=== PATIENT | male | born 1955 | race Caucasian/White ===

== ENCOUNTER 2016-12-04 19:05 | Emergency (ER) | payer BC ==
[2016-12-04] MEDS ORDERED: Cyclobenzaprine 10 MG Tab PO ONE (19:06)
[2016-12-04] MEDS ORDERED: Acetaminophen/HYDROcodone 325-5 MG Tab PO ONE (19:06)
[2016-12-04 19:16] VITALS: BP 148/66
[2016-12-04 19:31] LABS: CHLORIDE,CL 105 mEq/L (98-106); SODIUM,NA 141 mEq/L (136-145)
[2016-12-04] MEDS ORDERED: Tamsulosin 0.4 MG Cap.ER PO ONE (19:45)
[2016-12-04] MEDS ORDERED: Ketorolac 30 MG/ML SDV IVPUSH ONE (19:45)
[2016-12-04] MEDS ORDERED: Sodium Chloride 0.9% 1,000 ML IV ONE (19:45)
--- NOTE | 2016-12-04 19:58 | EDM.PDOC ---
ED HPI GENERAL MEDICAL PROBLEM - General Chief Complaint: Genitourinary Problem Stated Complaint: RIGHT FLANK PAIN Time Seen by Provider: 12/04/16 19:20 Source of Information: Reports: Patient History Limitations: Reports: No Limitations - History of Present Illness INITIAL COMMENTS - FREE TEXT/NARRATIVE: This patient is a 61 year old male that presents to the ER. Patient reports that for about the last 2 weeks that he has had right flank pain that comes and goes. he reports today the pain was worse than what it has. The patient reports today he noticed there was a dark color urine that he thought could be blood in his urine. The patient does report the pain in his lower right back is worse with movement. Patient denies any injury. Patient denies torres, dizziness, v, n, d , f, cp, soa, abd pain, bowel changes, urinary/bowel incontinence, testicle pain , penis pain. Onset Date: 11/20/16 Duration: Getting Worse Location: Reports: Back (Right flank) Severity: Moderate Improves with: Reports: None Worsens with: Reports: None Associated Symptoms: Denies: Confusion, Chest Pain, Cough, cough w sputum, Diaphoresis, Fever/Chills, Headaches, Loss of Appetite, Nausea/Vomiting, Rash, Seizure, Shortness of Breath, Weakness Right Flank Pain Score (Numeric/FACES): 3 - Related Data Allergies Allergy/AdvReac Type Severity Reaction Status Date / Time codeine Allergy Abdominal Verified 12/04/16 19:18 Cramps Home Meds: Home Meds Aspirin [Halfprin] 81 mg PO DAILY 09/17/14 [History] Cholecalciferol (Vitamin D3) [Vitamin D3] 5,000 units PO DAILY 09/17/14 [History ] Ibuprofen [Advil] 200 mg PO DAILY PRN 09/17/14 [History] Meloxicam [Meloxicam] 7.5 mg PO DAILY 09/17/14 [History] Omeprazole [Omeprazole] 20 mg PO DAILY 09/17/14 [History] Pregabalin [Lyrica] 75 mg PO DAILY 09/17/14 [History] Simvastatin [Simvastatin] 10 mg PO DAILY 09/17/14 [History] Acetaminophen [Tylenol] 325 - 650 mg PO Q4H PRN 06/26/15 [History] Multivitamin [Daily Multiple Vitamin] 1 tab PO DAILY 06/26/15 [History] Past Medical History Cardiovascular History: Reports: High Cholesterol Musculoskeletal History: Reports: Back Pain, Chronic - Infectious Disease History Infectious Disease History: Reports: MRSA, Other (See Below) Other Infectious Disease History: Clearance #1, needs 2 more nasal cxs - Past Surgical History GI Surgical History: Reports: Cholecystectomy Musculoskeletal Surgical History: Reports: Arthroscopic Knee, Arthroscopic Procedure Social & Family History - Tobacco Use Smoking Status *Q: Former Smoker Used Tobacco, but Quit: Yes Month Tobacco Last Used: 5 YEARS AGO - Caffeine Use Caffeine Use: Reports: Coffee - Recreational Drug Use Recreational Drug Use: No - Living Situation & Occupation Living situation: Reports: Occupation: Employed ED ROS GENERAL - Review of Systems Review Of Systems: See Below Constitutional: Reports: No Symptoms HEENT: Reports: No Symptoms Respiratory: Reports: No Symptoms Cardiovascular: Reports: No Symptoms Endocrine: Reports: No Symptoms GI/Abdominal: Reports: No Symptoms : Reports: Flank Pain (Right), Hematuria Musculoskeletal: Reports: No Symptoms Skin: Reports: No Symptoms Neurological: Reports: No Symptoms Psychiatric: Reports: No Symptoms Hematologic/Lymphatic: Reports: No Symptoms Immunologic: Reports: No Symptoms ED EXAM, GI/ABD - Physical Exam Exam: See Below Exam Limited By: No Limitations General Appearance: Alert, WD/WN, No Apparent Distress Eyes: Bilateral: Normal Appearance Ears: Normal External Exam, Normal Canal, Hearing Grossly Normal, Normal TMs Nose: Normal Inspection, Normal Mucosa, No Blood Throat/Mouth: Normal Inspection, Normal Lips, Normal Teeth, Normal Gums, Normal Oropharynx, Normal Voice, No Airway Compromise Neck: Normal Inspection, Supple, Non-Tender, Full Range of Motion Respiratory/Chest: No Respiratory Distress, Lungs Clear, Normal Breath Sounds, No Accessory Muscle Use Cardiovascular: Normal Peripheral Pulses, Regular Rate, Rhythm, No Edema, No Gallop, No JVD, No Murmur, No Rub GI/Abdominal Exam: Normal Bowel Sounds, Soft, Non-Tender, No Organomegaly, No Distention, No Abnormal Bruit, No Mass Back Exam: Normal Inspection, Full Range of Motion, CVA Tenderness (R), Other ( Pain Right flank does increase with twisting of the trunk per patient. ). No: CVA Tenderness (L), Decreased Range of Motion, Muscle Spasm, Paraspinal Tenderness, Vertebral Tenderness Extremities: Normal Inspection, Normal Range of Motion, Non-Tender, No Pedal Edema, Normal Capillary Refill Neurological: Alert, Oriented Psychiatric: Normal Affect, Normal Mood Skin Exam: Warm, Dry, Intact, Normal Color, No Rash Lymphatic: No Adenopathy Course - Vital Signs Last Recorded V/S: Last Vital Signs Temp 97.8 F 12/04/16 19:06 Pulse 61 12/04/16 19:06 Resp 16 12/04/16 19:06 BP 148/66 H 12/04/16 19:06 Pulse Ox 94 L 12/04/16 19:06 - Orders/Labs/Meds Labs: Laboratory Tests 12/04/16 12/04/16 12/04/16 Range/Units 19:19 19:19 19:19 WBC 9.1 (5.0-10.0) 10^3/uL RBC 5.08 (4.50-6.00) 10^6/uL Hgb 14.6 (14.0-18.0) g/dL Hct 44.2 (40.0-54.0) % MCV 87.0 (82.0-94.0) fL MCH 28.7 (27.0-32.0) pg MCHC 33.0 (33.0-38.0) g/dL RDW Coeff of Idania 13.5 (11.0-15.0) % Plt Count 241 (150-400) 10^3/uL Neut % (Auto) 62.8 (35-85) % Lymph % (Auto) 27.2 (10-55) % Isabela % (Auto) 8.5 (0-16) % Eos % (Auto) 1.3 (0-5) % Baso % (Auto) 0.2 (0-3) % Neut # (Auto) 5.71 (1.80-7.00) 10^3/uL Lymph # (Auto) 2.47 (1.00-4.80) 10^3/uL Isabela # (Auto) 0.77 (0.00-0.80) 10^3/uL Eos # (Auto) 0.12 (0.00-0.45) 10^3/uL Baso # (Auto) 0.02 10^3/uL Sodium 141 (136-145) mEq/L Potassium 3.8 (3.5-5.0) mEq/L Chloride 105 (98-106) mEq/L Carbon Dioxide 26 (21-32) mmol/L BUN 16 (7-18) mg/dL Creatinine 1.0 (0.7-1.3) mg/dL Est Cr Clr Drug Dosing TNP Estimated GFR (MDRD) > 60 (>=60) mL/min Glucose 136 H D (75-99) mg/dL Calcium 9.0 (8.4-10.1) mg/dL Total Bilirubin 0.9 (0.0-1.0) mg/dL AST 22 (15-37) U/L ALT 29 (12-78) U/L Alkaline Phosphatase 103 (46-116) U/L Total Protein 7.6 (6.4-8.2) g/dL Albumin 3.8 (3.4-5.0) g/dL Urine Color Dark yellow (YELLOW) Urine Appearance Clear (CLEAR) Urine pH 6.0 (4.5-8.0) Ur Specific Sherman 1.025 H (1.003-1.020) Urine Protein Trace H (NEGATIVE) mg/dL Urine Glucose (UA) Negative (NEGATIVE) mg/dL Urine Ketones 15 H (NEGATIVE) mg/dL Urine Occult Blood Trace-lysed H (NEGATIVE) Urine Nitrite Negative (NEGATIVE) Urine Bilirubin Negative (NEGATIVE) Urine Urobilinogen 1.0 (0.2-1.0) EU/dL Ur Leukocyte Esterase Negative (NEGATIVE) Urine RBC 0-5 (0-5) /HPF Urine WBC Not seen (0-5) /HPF Ur Squamous Epith Cells Occasional H (NOT SEEN) /HPF Urine Bacteria Occasional H (NOT SEEN) /HPF Urine Mucus Moderate H (NOT SEEN) /HPF Meds: Medications Discontinued Medications Generic Name Dose Route Start Last Admin Trade Name Freq PRN Reason Stop Dose Admin Hydrocodone Bitart/Acetaminophen 3 packet 12/04/16 21:24 12/04/16 22:03 Take Home: Acetaminophen/Hydrocod, 2 Tab Pack PO 12/04/16 21:25 3 packet ONETIME ONE Administration Cyclobenzaprine HCl 1 packet 12/04/16 21:25 12/04/16 22:03 Take Home: Cyclobenzaprine 10 Mg, 4 Tab Pack PO 12/04/16 21:26 1 packet ONETIME ONE Administration Sodium Chloride 1,000 mls @ 1,000 mls/hr 12/04/16 19:45 Normal Saline IV 12/04/16 20:44 .BOLUS ONE Ketorolac Tromethamine 30 mg 12/04/16 19:45 Toradol IVPUSH 12/04/16 19:46 ONETIME ONE Tamsulosin HCl 0.4 mg 12/04/16 19:45 Flomax PO 12/04/16 19:46 ONETIME ONE - Radiology Interpretation Free Text/Narrative:: Renal CT; Liver cyst that was present in 2008 scan, no concern. No ureter stone , no hydronephrosis. Discussed with radiologist. CT Results Date: 12/04/16 CT Results Time: Departure - Departure Time of Disposition: Disposition: Home, Self-Care 01 Condition: Good Clinical Impression: Lumbar strain Qualifiers: Encounter type: initial encounter Qualified Code(s): S39.012A - Strain of muscle, fascia and tendon of lower back, initial encounter - Discharge Information Instructions: Back Injury Prevention, [id number] Referrals: Chidi Almonte MD [Primary Care Provider] - Forms: ED Department Discharge Additional Instructions: Followup with your primary care provider Return to the ER for worsening of condition or any emergent concerns [place] 5/325mg 1-2 pills every 4-6 hours as needed for pain #12 no refill #6 take home Flexeril 10mg 1 pill three times a day as needed for muscle spasm #12 no refill #4 take home Increase fluids - Assessment/Plan Plan: PLEASE SEE RN NOTE FOR PFSH.
[2016-12-04] MEDS ORDERED: Take Home: Acetaminophen/HYDROcodone 325-5 MG, 2 Tab Pack PO ONE (21:24)
[2016-12-04] MEDS ORDERED: Take Home: Cyclobenzaprine 10 MG Tab, 4 Tab Pack PO ONE (21:25)
== END 2016-12-04 21:50 | disposition home or self-care (01) ==
LOC: CC.ED 19:05
DX: S39.012A Strain of muscle, fascia and tendon of lower back, initial encounter (principal); Z88.5 Allergy status to narcotic agent; Z79.82 Long term (current) use of aspirin; Z79.899 Other long term (current) drug therapy; E78.00 Pure hypercholesterolemia, unspecified; Z90.49 Acquired absence of other specified parts of digestive tract; Z87.891 Personal history of nicotine dependence; X58.XXXA Exposure to other specified factors, initial encounter
CPT/HCPCS: 36415; 74176; 80053; 81001; 85025; 99284; A9270

== ENCOUNTER → 2017-07-01 | Day surgery (SDC) | payer BC ==
[~2017-07-01] MED LIST: Lactated Ringers 1,000 ML IV SCH; Meperidine PF 25 MG/ML Syringe IV ONE; Meperidine PF 25 MG/ML Syringe ONE; Meperidine PF 50 MG/ML Syringe IV ONE; Meperidine PF 50 MG/ML Syringe ONE; Midazolam 1 MG/ML 2 ML SDV IV ONE; Midazolam 1 MG/ML 2 ML SDV ONE
[2017-07-01 10:54] VITALS: BP 118/65
--- NOTE | 2017-07-04 08:13 | OR ---
DATE OF OPERATION: 07/01/2017 PREOPERATIVE DIAGNOSIS: FOLLOW UP POLYPS. POSTOPERATIVE DIAGNOSIS: FOLLOW UP POLYPS. SURGEON: Mark Plummer MD PROCEDURE: FULL-LENGTH COLONOSCOPY WITH FORCEPS POLYP REMOVAL X2. ANESTHESIA: Conscious sedation. COMPLICATIONS: None. SPECIMEN: Two small hyperplastic polyps. FINDINGS: 1. Full-length colonoscopy. 2. Hyperplastic polyps x2 distal sigmoid, rectosigmoid junction. RECOMMENDATIONS: Follow up colonoscopy in 3 years. INDICATIONS: The patient had a large tubulovillous lesion removed from the perianal area 2 years ago. He is overdue for a followup. He is supposed to have a one year follow up procedure. We are at two years. Dr. Almonte sent him for colonoscopy. DESCRIPTION OF PROCEDURE: The patient was prepped and draped, placed in the left lateral decubitus position. A lubricated Olympus colonoscope was inserted and easily advanced to the cecum. Direct visualization of the ileocecal valve and appendiceal orifice was accomplished. Bowel prep was fine. Upon withdrawal, the right transverse and descending colons were benign. In the sigmoid area, the patient had no signs of any vascular abnormalities, colitis, diverticula, polyps, mass or otherwise. At the rectosigmoid junction and into the proximal rectal vault, the patient had 2 small flat hyperplastic polyps, both removed with forceps in their entirety without complication. The rectal vault appeared benign. Retroflexion did get an excellent look at the perianal area, it showed no recurrence of the polyp or residual polyp left from his prior removal. Air was then suctioned. Scope was removed without complication. DUTCH/RODRIGUEZ /[id number]
== END ==
LOC: CC.SDS 09:00
PROVIDERS: ATTEND Family Medicine
DX: D12.8 Benign neoplasm of rectum (principal); D12.7 Benign neoplasm of rectosigmoid junction; K21.9 Gastro-esophageal reflux disease without esophagitis; E78.5 Hyperlipidemia, unspecified; N40.1 Benign prostatic hyperplasia with lower urinary tract symptoms; R35.1 Nocturia; N41.0 Acute prostatitis; E55.9 Vitamin D deficiency, unspecified; Z87.891 Personal history of nicotine dependence; Z86.010 Personal history of colon polyps; Z79.82 Long term (current) use of aspirin; Z88.5 Allergy status to narcotic agent
CPT/HCPCS: J2175; J2250; J7120

== ENCOUNTER 2019-02-08 10:25 | Emergency (ER) | payer BC ==
[2019-02-08 11:08] LABS: CHLORIDE,CL 106 mEq/L (98-106); SODIUM,NA 142 mEq/L (136-145)
--- NOTE | 2019-02-08 11:17 | EDM.PDOC ---
ED HPI GENERAL MEDICAL PROBLEM - General Chief Complaint: Chest Pain Stated Complaint: chest pain Time Seen by Provider: 02/08/19 11:15 - History of Present Illness INITIAL COMMENTS - FREE TEXT/NARRATIVE: Was at work when he developed central chest pain that radiated up into his jaw. He did take 4 baby ASA. He felt nauseated for a short time. He does have history of GERD and has been taking his meds. relates that he sees Dr. Almonte and this past summer he was having some pain like this and he had stress test and then had a cardiolyte both of which were negative. He has had jackie in the past. Did not eat anything unusual today. When he arrived in the ER he states that his pain was down to a 1. Onset: Today Duration: Improving Location: Reports: Chest Treatments DIETARY SERVICES DIRECTOR: Reports: Aspirin Middle Chest Pain Score (Numeric/FACES): 1 - Related Data Allergies Allergy/AdvReac Type Severity Reaction Status Date / Time codeine Allergy Abdominal Verified 02/08/19 10:38 Cramps Home Meds: Home Meds Aspirin [Halfprin] 81 mg PO DAILY 09/17/14 [History] Cholecalciferol (Vitamin D3) [Vitamin D3] 5,000 units PO DAILY 09/17/14 [History ] Ibuprofen [Advil] 200 mg PO DAILY PRN 09/17/14 [History] Meloxicam 7.5 mg PO DAILY 09/17/14 [History] Simvastatin 10 mg PO DAILY 09/17/14 [History] Acetaminophen [Tylenol] 325 - 650 mg PO Q4H PRN 06/26/15 [History] Multivitamin [Daily Multiple Vitamin] 1 tab PO DAILY 06/26/15 [History] Naproxen Sodium [Aleve] 220 mg PO BID PRN 06/30/17 [History] Tamsulosin [Tamsulosin 24 Hr] 0.4 mg PO DAILY 06/30/17 [History] Folic Acid 1 mg PO DAILY 07/01/17 [History] Metoprolol Succinate 50 mg PO DAILY 02/08/19 [History] Past Medical History HEENT History: Reports: Other (See Below) Cardiovascular History: Reports: High Cholesterol Genitourinary History: Reports: Other (See Below) Other Genitourinary History: enlarged prostate Musculoskeletal History: Reports: Back Pain, Chronic Oncologic (Cancer) History: Reports: Other (See Below) Other Oncologic History: lip cancer - Infectious Disease History Infectious Disease History: Reports: C-Difficile, MRSA, Other (See Below) Other Infectious Disease History: Clearance #1, needs 2 more nasal cxs - Past Surgical History Other HEENT Surgeries/Procedures: sinus surgery GI Surgical History: Reports: Cholecystectomy Musculoskeletal Surgical History: Reports: Arthroscopic Knee, Arthroscopic Procedure Social & Family History - Tobacco Use Smoking Status *Q: Former Smoker Years of Tobacco use: 10 Packs/Tins Daily: 0.5 Used Tobacco, but Quit: Yes Month/Year Tobacco Last Used: 10 - Caffeine Use Caffeine Use: Reports: Coffee - Recreational Drug Use Recreational Drug Use: No - Living Situation & Occupation Living situation: Reports: Occupation: Employed ED ROS GENERAL - Review of Systems Review Of Systems: See Below Constitutional: Denies: Fever, Chills, Weakness HEENT: Reports: No Symptoms Respiratory: Denies: Shortness of Breath Cardiovascular: Reports: Chest Pain. Denies: Edema, Lightheadedness GI/Abdominal: Reports: Other (heart burn) Musculoskeletal: Reports: No Symptoms Skin: Reports: No Symptoms Neurological: Reports: No Symptoms ED EXAM, GENERAL - Physical Exam Exam: See Below Exam Limited By: No Limitations General Appearance: Alert, WD/WN, Mild Distress Ears: Normal External Exam, Normal TMs Throat/Mouth: Normal Inspection, Normal Oropharynx, No Airway Compromise Head: Atraumatic, Normocephalic Neck: Normal Inspection, Supple, Non-Tender, Full Range of Motion Respiratory/Chest: No Respiratory Distress, Lungs Clear, Normal Breath Sounds Cardiovascular: Normal Peripheral Pulses, Regular Rate, Rhythm, No Edema GI/Abdominal: Normal Bowel Sounds, Soft, Tender (to the midepigastric area with any palpation.) Back Exam: Normal Inspection Extremities: Normal Inspection, No Pedal Edema Neurological: Alert, Oriented Psychiatric: Normal Affect Skin Exam: Warm, Dry, Intact Course - Vital Signs Last Recorded V/S: Last Vital Signs Temp 96 F 02/08/19 11:14 Pulse 53 L 02/08/19 11:14 Resp 10 L 02/08/19 11:14 BP 132/79 02/08/19 11:14 Pulse Ox 93 L 02/08/19 10:59 - Orders/Labs/Meds Orders: Active Orders 24 hr Category Date Time Status Chest 2V [CR] Stat Exams 02/08/19 09:46 Taken Labs: Laboratory Tests 02/08/19 02/08/19 02/08/19 Range/Units 10:51 10:51 10:51 WBC 8.5 (5.0-10.0) 10^3/uL RBC 4.74 (4.50-6.00) 10^6/uL Hgb 14.0 (14.0-18.0) g/dL Hct 42.6 (40.0-54.0) % MCV 89.9 (82.0-94.0) fL MCH 29.5 (27.0-32.0) pg MCHC 32.9 L (33.0-38.0) g/dL RDW Coeff of Idania 12.7 (11.0-15.0) % Plt Count 276 (150-400) 10^3/uL Neut % (Auto) 63.2 (35-85) % Lymph % (Auto) 24.1 (10-55) % Tompkins % (Auto) 10.0 (0-16) % Eos % (Auto) 2.2 (0-5) % Baso % (Auto) 0.5 (0-3) % Neut # (Auto) 5.39 (1.80-7.00) 10^3/uL Lymph # (Auto) 2.05 (1.00-4.80) 10^3/uL Tompkins # (Auto) 0.85 H (0.00-0.80) 10^3/uL Eos # (Auto) 0.19 (0.00-0.45) 10^3/uL Baso # (Auto) 0.04 10^3/uL PT 10.6 (9.7-12.3) SEC INR 1.03 (0.92-1.18) APTT 27.3 (23.2-32.3) SEC Sodium 142 (136-145) mEq/L Potassium 4.3 (3.5-5.0) mEq/L Chloride 106 (98-106) mEq/L Carbon Dioxide 27 (21-32) mmol/L BUN 15 (7-18) mg/dL Creatinine 0.8 (0.7-1.3) mg/dL Est Cr Clr Drug Dosing 91.44 mL/min Estimated GFR (MDRD) > 60 (>=60) mL/min Glucose 101 H (75-99) mg/dL Calcium 9.5 (8.4-10.1) mg/dL Lactate Dehydrogenase 201 H (100-190) U/L Creatine Kinase 165 (35-232) U/L Troponin I < 0.017 (0.00-0.06) ng/mL - Re-Assessments/Exams Free Text/Narrative Re-Assessment/Exam: 02/08/19 1100 Discussed normal lab results, EKG and relief of pain. Discussed that with normal cardiolyte within last 4-6 months it is unlikely this is cardiac related. Continue with the protonix. IF pain reoccurs then would need to follow up with PCP for possible EGD and other testing. and pt both voice understanding. Will start Carafate for 2 weeks at this time. Departure - Departure Time of Disposition: 11:14 Disposition: Home, Self-Care 01 Condition: Good Clinical Impression: Gastroesophageal reflux disease Qualifiers: Esophagitis presence: esophagitis presence not specified Qualified Code(s): K21.9 - Gastro-esophageal reflux disease without esophagitis Referrals: Barney Pedraza PA-C [Physician Remittance Clerk] - Forms: ED Department Discharge Additional Instructions: Carafate 1 gram four times a day for 2 weeks. Follow up with Dr. Almonte if symptoms reoccur - Problem List & Annotations (1) Gastroesophageal reflux disease SNOMED Code(s): 866671158 Code(s): K21.9 - GASTRO-ESOPHAGEAL REFLUX DISEASE WITHOUT ESOPHAGITIS Status: Acute Priority: High Qualifiers: Esophagitis presence: esophagitis presence not specified Qualified Code(s) : K21.9 - Gastro-esophageal reflux disease without esophagitis (2) Chest pain of uncertain etiology SNOMED Code(s): 97414990 Code(s): R07.89 - OTHER CHEST PAIN Status: Acute Priority: High - Problem List Review Problem List Initiated/Reviewed/Updated: Yes - My Orders Last 24 Hours: My Active Orders 02/08/19 09:46 Chest 2V [CR] Stat - Assessment/Plan Last 24 Hours: My Active Orders 02/08/19 09:46 Chest 2V [CR] Stat
[2019-02-08 12:53] VITALS: BP 132/79; PULSE 53
== END 2019-02-08 11:21 | disposition home or self-care (01) ==
LOC: SUPCPDRO 10:25 → CC.ED 10:25
DX: K21.9 Gastro-esophageal reflux disease without esophagitis (principal); E78.00 Pure hypercholesterolemia, unspecified; Z88.5 Allergy status to narcotic agent; Z79.82 Long term (current) use of aspirin; Z79.899 Other long term (current) drug therapy; Z87.891 Personal history of nicotine dependence; Z90.49 Acquired absence of other specified parts of digestive tract
CPT/HCPCS: 36415; 71046; 80048; 82550; 83615; 84484; 85025; 85610; 85730; 93005; 99285-25

== ENCOUNTER 2021-08-30 17:30 | Emergency (ER) | payer OTHER, MEDICARE ==
[2021-08-30 17:34] VITALS: BP 131/79; PULSE 73
[2021-08-30 18:39] LABS: CHLORIDE,CL 104 mEq/L (98-106); ESTIMATED GFR > 60 mL/min (>=60); SODIUM,NA 142 mEq/L (136-145)
[2021-08-30] MEDS: Take Home: traMADol 50 MG, 4 Tab Pack PO ONE (18:59)
== END 2021-08-30 19:08 | disposition home or self-care (01) ==
LOC: CC.ED 17:30 → SUPCPDRO 17:30 → CC.ED 19:08
DX: M25.561 Pain in right knee (principal); R21 Rash and other nonspecific skin eruption; E78.00 Pure hypercholesterolemia, unspecified; I10 Essential (primary) hypertension; Z87.891 Personal history of nicotine dependence; Z88.5 Allergy status to narcotic agent; Z79.82 Long term (current) use of aspirin; Z79.899 Other long term (current) drug therapy; Z96.651 Presence of right artificial knee joint
CPT/HCPCS: 36415; 80053; 85025; 85651; 86140; 99283; 99284; A9270-GY